=== PATIENT | female | born 1995 ===

== ENCOUNTER 2018-09-25 19:47 | Inpatient (IN) | payer BC, OTHER ==
[~2018-09-25] VITALS: Ht 165.1 cm; Wt 49.9 kg
[2018-09-26 00:02] VITALS: BP 105/55
[2018-09-26] MEDS ORDERED: QUET50TA PO (00:34)
[2018-09-26] MEDS ORDERED: CLON0.1T PO (00:34)
[2018-09-26] MEDS ORDERED: BUPR300T54 PO (00:34)
[2018-09-26] MEDS ORDERED: LAMO100T2 PO (00:34)
[2018-09-26] MEDS ORDERED: TRAM50TA2 PO (00:34)
[2018-09-26] MEDS ORDERED: OFLO5DRO3 OP (00:34)
[2018-09-26] MEDS ORDERED: CYAN100071 PO (00:59)
[2018-09-26] MEDS ORDERED: MIRALAX 17 GM POWD.PACK PO PRN (01:00)
[2018-09-26] MEDS ORDERED: ACETAMINOPHEN 325 MG TABLET PO PRN (01:00)
[2018-09-26] MEDS ORDERED: LORAZEPAM 2 MG/1 ML VIAL IM PRN (01:00)
[2018-09-26] MEDS ORDERED: METHOCARBAMOL 750 MG TABLET PO PRN (01:00)
[2018-09-26] MEDS ORDERED: MAG HYDROX/AL HYDROX/SIMETH 30 ML LIQUID UDC PO PRN (01:00)
[2018-09-26] MEDS ORDERED: diphenhydrAMINE 50 MG CAPSULE PO PRN (01:00)
[2018-09-26] MEDS ORDERED: ONDANSETRON ODT 4 MG TAB.RAPDIS SL PRN (01:00)
[2018-09-26] MEDS ORDERED: HYDROXYZINE PAMOATE 25 MG CAPSULE PO PRN (01:00)
[2018-09-26] MEDS ORDERED: ONDANSETRON 4 MG/2 ML VIAL IM PRN (01:00)
[2018-09-26] MEDS ORDERED: DIAZEPAM 5 MG TABLET PO PRN (01:00)
[2018-09-26] MEDS ORDERED: DIAZEPAM 10 MG TABLET PO PRN ×2 (01:00)
[2018-09-26] MEDS ORDERED: LOPERAMIDE HCL 2 MG CAPSULE PO PRN ×2 (01:00)
[2018-09-26] MEDS ORDERED: BUPRENORPHINE HCL 2 MG TAB.SUBL SL PRN (01:00)
[2018-09-26] MEDS ORDERED: THIAMINE HCL 200 MG/2 ML VIAL IM ONE (01:00)
[2018-09-26] MEDS ORDERED: CLONIDINE HCL 0.1 MG TABLET PO PRN (01:00)
[2018-09-26] MEDS ORDERED: DICYCLOMINE HCL 20 MG TABLET PO PRN (01:00)
[2018-09-26] MEDS ORDERED: MAGNESIUM HYDROXIDE 30 ML LIQUID UDC PO PRN (01:00)
[2018-09-26 01:22] LABS: *URINE HCG, QUAL NEGATIVE (NEGATIVE)
[2018-09-26 01:26] LABS: BASOPHILS # (AUTO) 0.1 K/uL (0.0-8.0); BASOPHILS % (AUTO) 1.2 % (0.0-2.0); EOSINOPHILS # (AUTO) 0.1 K/uL (0.0-0.7); EOSINOPHILS % (AUTO) 1.1 % (0.0-7.0); HEMATOCRIT 34.8 % (31.2-41.9); HEMOGLOBIN 11.8 g/dL (10.9-14.3); LYMPHOCYTES # (AUTO) 1.2 K/uL (20.0-40.0); LYMPHOCYTES % (AUTO) 19.7 % (20.5-51.5); MEAN CORPUSCULAR HGB CONC 34 g/dL (32.3-35.6); MEAN CORPUSCULAR VOLUME 91.3 fL (75.5-95.3); MONOCYTES # (AUTO) 0.5 K/uL (2.0-10.0); MONOCYTES % (AUTO) 8.6 % (0.0-11.0); NEUTROPHILS # (AUTO) 4.3 K/uL (1.8-8.9); NEUTROPHILS % (AUTO) 69.4 % (38.5-71.5); PLATELET COUNT (AUTO) 279 K/uL (179-408); RED BLOOD CELL COUNT(AUTO) 3.81 MIL/uL (3.63-4.92); WHITE BLOOD COUNT (AUTO) 6.2 K/uL (3.8-11.8)
[2018-09-26] MEDS ORDERED: TRAZODONE 50 MG TABLET PO ONE (01:30)
[2018-09-26 01:39] LABS: ETHANOL < 3 MG/DL (0-0)
[2018-09-26 01:40] LABS: *AMPHETAMINE, URINE NEGATIVE (NEGATIVE); *BARBITURATE, URINE NEGATIVE (NEGATIVE); *CANNABINOID, URINE NEGATIVE (NEGATIVE); *COCCAINE, URINE NEGATIVE (NEGATIVE); *OPIATE, URINE NEGATIVE (NEGATIVE); *PHENCYCLIDINE SCREEN,URINE NEGATIVE (NEGATIVE)
[2018-09-26 02:07] LABS: ALANINE AMINOTRANSFERASE 19 U/L (14-59); ALKALINE PHOSPHATASE 50 U/L (50-136); AMYLASE 42 U/L (25-115); ASPARTATE AMINOTRANSFERASE 12 U/L (15-37); BILIRUBIN,TOTAL 0.3 mg/dL (0.2-1.0); CARBON DIOXIDE 28 mmol/L (21-32); CHLORIDE 103 mmol/L (98-107); CREATININE 0.9 mg/dL (0.6-1.3); GLUCOSE 106 mg/dL (74-106); LIPASE 138 U/L (73-393); MAGNESIUM 1.7 mg/dL (1.8-2.4); POTASSIUM 3.8 mmol/L (3.5-5.1); TOTAL PROTEIN, SERUM 6.7 g/dL (6.4-8.2); UREA NITROGEN, BLOOD 14 mg/dL (7-18)
[2018-09-26 02:44] LABS: THYROID STIMULATING HORMONE 1.871 mIU/mL (0.358-3.740)
[2018-09-26 08:00] VITALS: BP 105/64
[2018-09-26] MEDS ORDERED: MAGNESIUM OXIDE 400 MG TABLET PO ONE ×2 (09:00→12:30)
[2018-09-26] MEDS: FOLIC ACID 1 MG TABLET PO SCH (09:51)
[2018-09-26] MEDS: MULTIVITAMINS,THERAPEUTIC TABLET PO SCH (09:51)
[2018-09-26] MEDS: THIAMINE HCL 100 MG TABLET PO SCH (09:52)
[2018-09-26 12:00] VITALS: BP 100/59
[2018-09-26] MEDS ORDERED: TRAZODONE 100 MG TABLET PO PRN (14:45)
[2018-09-26] MEDS: LAMOTRIGINE 100 MG TABLET PO SCH ×2 (15:28→18:07)
[2018-09-26] MEDS: IBUPROFEN 400 MG TABLET PO PRN ×2 (16:17→20:53)
[2018-09-26 16:45] VITALS: BP 108/69
[2018-09-26 18:56] LABS: MAGNESIUM 1.9 mg/dL (1.8-2.4); POTASSIUM 4.1 mmol/L (3.5-5.1)
[2018-09-26 20:00] VITALS: BP 118/69
[2018-09-26] MEDS ORDERED: QUETIAPINE FUMARATE 25 MG TABLET PO SCH (21:00)
[2018-09-26] MEDS ORDERED: LAMOTRIGINE 100 MG TABLET PO SCH (21:00)
[2018-09-27 07:53] LABS: HEPATITIS B SURFACE AG Negative (Negative)
[2018-09-27 08:53] VITALS: BP 106/64
[2018-09-27] MEDS: THIAMINE HCL 100 MG TABLET PO SCH (08:55)
[2018-09-27] MEDS: MULTIVITAMINS,THERAPEUTIC TABLET PO SCH (08:55)
[2018-09-27] MEDS: LAMOTRIGINE 100 MG TABLET PO SCH (08:56)
[2018-09-27] MEDS: FOLIC ACID 1 MG TABLET PO SCH (08:56)
[2018-09-27] MEDS ORDERED: TUBERCULIN,PURIF.PROT.DERIV. 5 TU/0.1 ML TEST ID ONE (09:00)
[2018-09-27] MEDS ORDERED: buPROPion XL 150 MG TAB.SR.24H PO SCH (09:00)
[2018-09-28] MEDS ORDERED: buPROPion XL 150 MG TAB.SR.24H PO SCH (09:00)
== END 2018-09-27 10:13 | disposition other institution (70) | DRG 895 ==
LOC: SRC 23:26
PROVIDERS: ADMIT Family Medicine Addiction Medicine; ATTEND Family Medicine Addiction Medicine
PROC: HZ2ZZZZ Detoxification Services for Substance Abuse Treatment (ICD-10-PCS; principal; 2018-09-25)
PROC: HZ41ZZZ Group Counseling for Substance Abuse Treatment, Behavioral (ICD-10-PCS; 2018-09-26)
DX: F10.229 Alcohol dependence with intoxication, unspecified (principal); G40.509 Epileptic seizures related to external causes, not intractable, without status epilepticus; F10.239 Alcohol dependence with withdrawal, unspecified; F13.239 Sedative, hypnotic or anxiolytic dependence with withdrawal, unspecified; F11.23 Opioid dependence with withdrawal; Y90.0 Blood alcohol level of less than 20 mg/100 ml; G47.00 Insomnia, unspecified; F43.10 Post-traumatic stress disorder, unspecified; Z91.5 Personal history of self-harm; F17.290 Nicotine dependence, other tobacco product, uncomplicated; Z79.899 Other long term (current) drug therapy; F41.1 Generalized anxiety disorder; F31.9 Bipolar disorder, unspecified
CPT/HCPCS: 36415; 70030-TC; 80307; 83690; 83735; 84443; 84703; 85025; 86592; 86705; 86803; 87340; 87806; A4663; G0480

== ENCOUNTER 2018-09-25 22:39 | Emergency (ER) | payer BC, MEDICAID, OTHER ==
[~2018-09-25] VITALS: Ht 165.1 cm; Wt 54.4 kg
[2018-09-25 23:17] VITALS: BP 126/84
--- NOTE | 2018-09-25 23:17 | NUR ---
Patient discharged to home in stable conditon. Written and verbal after care instructions given. Patient verbalizes understanding of instructions.
[2018-09-26] MEDS ORDERED: LAMO100T2 PO (00:34)
[2018-09-26] MEDS ORDERED: OFLO5DRO3 OP (00:34)
[2018-09-26] MEDS ORDERED: BUPR300T54 PO (00:34)
[2018-09-26] MEDS ORDERED: CLON0.1T PO (00:34)
[2018-09-26] MEDS ORDERED: QUET50TA PO (00:34)
[2018-09-26] MEDS ORDERED: TRAM50TA2 PO (00:34)
[2018-09-26] MEDS ORDERED: CYAN100071 PO (00:59)
== END 2018-09-25 23:17 | disposition home or self-care (01) ==
LOC: ER 22:39
DX: Z00.00 Encounter for general adult medical examination without abnormal findings (principal); F17.200 Nicotine dependence, unspecified, uncomplicated; F12.10 Cannabis abuse, uncomplicated; Z88.8 Allergy status to other drugs, medicaments and biological substances
CPT/HCPCS: A4663